=== PATIENT | male | born 2000 | race Caucasian/White ===

== ENCOUNTER 2022-08-12 21:29 | Emergency (ER) | payer BC ==
[~2022-08-12] VITALS: Ht 177.8 cm; Wt 90.7 kg
[2022-08-13] MEDS ORDERED: TAMS0.4C PO (04:52)
[2022-08-13] MEDS ORDERED: KETO10TA2 PO (04:52)
[2022-08-13] MEDS ORDERED: BACTRIM DS TAB1 EACH PO (04:52)
== END 2022-08-13 05:13 | disposition home or self-care (01) ==
LOC: ER 21:29
DX: N20.1 Calculus of ureter (principal); M54.9 Dorsalgia, unspecified; E86.0 Dehydration; Z88.0 Allergy status to penicillin